=== PATIENT | female | born 1980 | race Caucasian/White ===

== ENCOUNTER 2018-08-19 19:18 | Emergency (ER) | payer SELFPAY ==
[2018-08-19 19:36] VITALS: O2SAT 100
--- NOTE | 2018-08-19 20:21 | ED PDOC ---
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 Associated dysuria x 2 days. Denies fever, nausea/vomtiing, chest pain, shortness of breath, changes in bowel movements, hematuria, vaginal bleeding/discharge. Past Medical History Reviewed: Historical Data, Nursing Documentation, Vital Signs Vital Signs: Last Vital Signs Temp 97.9 F 08/19/18 19:32 Pulse 68 08/19/18 19:32 Resp 16 08/19/18 19:32 BP 134/86 08/19/18 19:32 Pulse Ox 100 08/19/18 19:32 - Medical History PMH: Diabetes - Surgical History Surgical History: Cholecystectomy, - Family History Family History: States: No Known Family Hx - Living Arrangements Living Arrangements: With Family - Home Medications Home Medications: Ambulatory Orders Medication Instructions Recorded Cyclobenzaprine [Cyclobenzaprine 10 mg PO BID PRN #14 tab 08/19/18 HCl] Naproxen [Naprosyn] 500 mg PO Q12 PRN #20 tablet 08/19/18 - Allergies Allergies/Adverse Reactions: Allergies Allergy/AdvReac Type Severity Reaction Status Date / Time No Known Allergies Allergy Verified 08/19/18 19:31 Review of Systems ROS Statement: Except As Marked, All Systems Reviewed And Found Negative Genitourinary Female: Positive for: Dysuria, Pelvic Pain Musculoskeletal: Positive for: Back Pain Physical Exam - Reviewed Nursing Documentation Reviewed: Yes Vital Signs Reviewed: Yes - Physical Exam Appears: Positive for: Well, Non-toxic, No Acute Distress Head Exam: Positive for: ATRAUMATIC, NORMAL INSPECTION, NORMOCEPHALIC Skin: Positive for: Normal Color Eye Exam: Positive for: Normal appearance ENT: Positive for: Normal ENT Inspection Cardiovascular/Chest: Positive for: Regular Rate, Rhythm Respiratory: Positive for: Normal Breath Sounds Gastrointestinal/Abdominal: Positive for: Bowel Sounds, Soft, Tenderness (suprapubic, LLQ pain) Back: Positive for: Muscle Spasm (left lspine paravertebral tenderness). Negative for: L CVA Tenderness, R CVA Tenderness, Vertebral Tenderness, Decreased ROM Extremity: Positive for: Normal ROM Neurologic/Psych: Positive for: Alert, Oriented (x3) - Laboratory Results Result Diagrams: 08/19/18 20:51 08/19/18 20:51 - ECG O2 Sat by Pulse Oximetry: 100 - Progress ED Course And Treament: labs, urine, TV u/s, IV toradol USArad impression: nabothian cyst. 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 Balloon within 2-3 days Rx Naproxen, flexeril provided Return precautions given Disposition - Clinical Impression Clinical Impression: Left ovarian cyst, Back strain - Patient ED Disposition Is Patient to be Admitted: No Counseled Patient/Family Regarding: Studies Performed, Diagnosis, Need For Followup, Rx Given - Disposition Referrals: [facility] [Outside] [facility] [Outside] Disposition: Routine/Home Disposition Time: 22:43 Condition: IMPROVED Prescriptions: Cyclobenzaprine [Cyclobenzaprine HCl] 10 mg PO BID PRN #14 tab PRN Reason: Muscle Spasm Naproxen [Naprosyn] 500 mg PO Q12 PRN #20 tablet PRN Reason: Pain, Moderate (4-7) Instructions: Ovarian Cysts, Low Back Pain in Adults Print Language: BULGARIAN
[2018-08-19 20:40] LABS: SQUAMOUS EPITHIAL 1 /hpf (0-5); URINE AMORPHOUS SEDIMENT RARE /ul (<OCC); URINE BACTERIA RARE (<OCC); URINE BILIRUBIN NEGATIVE (NEGATIVE); URINE BLOOD NEGATIVE (NEGATIVE); URINE CLARITY CLOUDY (Clear); URINE COLOR YELLOW (YELLOW); URINE GLUCOSE (UA) >=500 mg/dL (Normal); URINE LEUKOCYTE ESTERASE NEG Leu/uL (Negative); URINE PROTEIN NEGATIVE (NEGATIVE); URINE UROBILINOGEN 0.2-1.0 mg/dL (0.2-1.0)
[2018-08-19 20:56] LABS: BASO % 0.3 % (0.0-2.0); EOS # 0.1 K/uL (0.0-0.7); EOS % 0.8 % (0.0-4.0); HEMOGLOBIN 9.5 g/dL (12.0-16.0); LYMPH # 3.4 K/uL (1.0-4.3); LYMPH % 37.3 % (20.0-40.0); MEAN CELL VOLUME 71.9 fl (81.0-99.0); MEAN CORPUSCULAR HEMOGLOBIN 22.9 pg (27.0-31.0); MEAN CORPUSCULAR HGB CONC 31.8 g/dL (33.0-37.0); MEAN PLATELET VOLUME 8.2 fl (7.2-11.7); MONO # 0.5 K/uL (0.0-0.8); MONO % 5.4 % (0.0-10.0); NEUT # 5.2 K/uL (1.8-7.0); NEUT % 56.2 % (50.0-75.0); RBC 4.14 Mil/uL (3.80-5.20); RED CELL DISTRIBUTION WIDTH 16.7 % (11.5-14.5); WHITE BLOOD COUNT 9.2 K/uL (4.8-10.8)
[2018-08-19 21:10] LABS: ALBUMIN 4.3 g/dL (3.5-5.0); ALT/SGPT 35 U/L (9-52); AST/SGOT 32 U/L (14-36); BLOOD UREA NITROGEN 10 mg/dl (7-17); CALCIUM 9.3 mg/dL (8.4-10.2); GFR NON-AFRICAN AMERICAN > 60
[2018-08-20 00:51] VITALS: BP 122/68; PULSE 72; RESP 18; TEMP 98
--- NOTE | 2018-08-20 15:15 | US ---
Date of service: 08/19/2018 HISTORY: suprapubic, left pelvic pain COMPARISON: None available. TECHNIQUE: Transvaginal pelvic ultrasound was performed. FINDINGS: UTERUS: Measures 9.5 x 4.7 x 5.2 cm. Anteverted, normal in size and appearance. No fibroid or other mass lesion seen. ENDOMETRIUM: Measures 11 mm in diameter. Unremarkable. CERVIX: There is a small nabothian cyst in the cervix. RIGHT OVARY: Measures 3.0 x 1.8 x 2.9 cm. No solid mass. Normal flow. LEFT OVARY: Measures 2.6 x 2.6 x 3.1 cm. No solid mass. Normal flow. There is a 2.1 x 2.0 x 1.8 cm simple cyst. FREE FLUID: No significant free fluid noted. OTHER FINDINGS: None. IMPRESSION: Unremarkable pelvic ultrasound. A preliminary report was provided by Shahiya.
== END 2018-08-19 23:15 | disposition home or self-care (01) ==
LOC: H.ER 19:18
DX: N83.202 Unspecified ovarian cyst, left side (principal); M54.9 Dorsalgia, unspecified; E11.9 Type 2 diabetes mellitus without complications
CPT/HCPCS: 76830; 80053; 81003; 81025; 82948; 85025; 87086; 99284; J1885